=== PATIENT | female | born 1995 | race Hispanic/Latino ===

== ENCOUNTER 2019-01-18 06:33 | Outpatient (CLI) | payer OTHER ==
--- NOTE | 2019-01-18 08:55 | ULT ---
PELVIC SONOGRAM TRANSABDOMINAL IMAGING WITH DUPLEX EVALUATION: HISTORY: Pelvic pain and bleeding. FINDINGS: Urinary bladder is decompressed. Uterus is retroverted with a heterogeneous echotexture. It measure s up to 10.1 cm. Endometrium is 0.8 cm. A tiny nonshadowing echogenic focus is apparent within the fundal endometrium. Physiologic amount of free fluid in the cul-de-sac. Right ovary is 3.7 cm and left is 2.8 cm. Each contains small follicles and demonstrates good color and spectral Doppler flow. IMPRESSION: Retroverted uterus. Probable tiny calcific focus within the fundal endometrium. Cause is not eviden t. POS: [facility]
== END 2019-01-18 06:34 | disposition home or self-care (01) ==
LOC: BICULT 06:33
PROVIDERS: ATTEND Family Medicine
DX: N93.9 Abnormal uterine and vaginal bleeding, unspecified (principal); N85.4 Malposition of uterus
CPT/HCPCS: 76856; 93976

== ENCOUNTER 2020-01-24 13:56 | Outpatient (CLI) | payer MEDICAID ==
--- NOTE | 2020-01-24 14:40 | ULT ---
Exam: Transabdominal and endovaginal pelvic ultrasound HISTORY:Secondary infertility. COMPARISON: None TECHNIQUE: Transabdominal and endovaginal imaging of the pelvis is performed. Ovaries are interrogate d with grayscale, color flow, Doppler imaging and spectral wave form analysis FINDINGS: Uterus: No myometrial masses. Uterus measurin.7 x 3.8 x 4.7 cm. Endometrium: Homogeneous echotexture. Endometrium diameter: 1.5 cm. . Free fluid: None Right ovary: Normal echotexture Right ovary measurement: 3.9 x 2.3 x 2.1 cm Left ovary: Normal echotexture. Left ovary measurements: 3.0 x 2.7 x 2.1 cm Ovarian Doppler: There is vascular flow to the left and right ovary. IMPRESSION: 1. Normal sonographic appearance of the uterus and endometrium. 2. Symmetric echotexture of the ovaries. Symmetric vascular flow.
== END 2020-01-24 13:57 | disposition home or self-care (01) ==
LOC: BICULT 13:56
PROVIDERS: ATTEND Nurse Practitioner Women's Health
DX: N97.9 Female infertility, unspecified (principal)
CPT/HCPCS: 76856

== ENCOUNTER 2021-04-06 06:26 | Emergency (ER) | payer MEDICAID, SELFPAY ==
[2021-04-06 07:06] LABS: #Basophils 0.1 thou/uL (0.0-0.2); #Eosinphils 0.1 thou/uL (0.0-0.7); #Lymphocytes 2.8 thou/uL (1.20-3.40); #Monocytes 0.7 thou/uL (0.11-0.59); %Basophils 0.7 % (0.0-1.0); %Eosinophils 1.1 % (0.0-10.0); %Lymphocytes 26.4 % (21.0-51.0); %Monocytes 6.7 % (0.0-10.0); %Neutrophils 65.2 % (42.0-75.0); Hemoglobin 13.1 g/dL (12.0-16.0); Mean Corpuscular HGB CONC 33.1 g/dL (32.0-36.0); Mean Corpuscular Hemoglobin 30.7 pg (27.0-31.0); Mean Corpuscular Volume 92.7 fL (78.0-98.0); Mean Platelet Volume 7.7 fL (7.4-10.4); Platelet Count 319 thou/uL (130-400); Red Blood Cell (RBC) Count 4.25 mill/uL (4.20-5.40); White Blood Cell (WBC) Count 10.7 thou/uL (4.8-10.8)
[2021-04-06 07:29] LABS: ALT (SGPT) 11 U/L (8-55); AST (SGOT) 13 U/L (5-34); Albumin 4.3 g/dL (3.5-5.0); Alkaline Phosphatase 94 U/L (40-110); Anion Gap 11 mmol/L (10-20); BUN (Urea Nitrogen) 13 mg/dL (7.0-18.7); Bilirubin, Total 0.5 mg/dL (0.2-1.2); Calc. Creatinine Clearance 0 mL/min (70-130); Calcium 9.7 mg/dL (7.8-10.44); Carbon Dioxide 23 mmol/L (22-29); Chloride 106 mmol/L (98-107); Glucose 107 mg/dL (70-105); Lipase 30 U/L (8-78); Potassium 3.9 mmol/L (3.5-5.1); Protein, Total 7.3 g/dL (6.0-8.3); Sodium 136 mmol/L (136-145)
[2021-04-06] MEDS ORDERED: Ibuprofen 200 MG TAB ONE (07:31)
[2021-04-06] MEDS ORDERED: Acetaminophen 500 MG TAB ONE (07:31)
[2021-04-06 07:47] LABS: BHCG - Serum POSITIVE (NEGATIVE); Pregs Control Bar Appear? YES (CONTROL BAR)
[2021-04-06 07:48] LABS: Pregs Control Background? CLEAR/WHITE (CLR/WHITE)
[2021-04-06 10:39] LABS: Bilirubin Negative (Negative); Blood, Urine Negative (Negative); Clarity Turbid (Clear); Glucose, Urine (Dipstick) Normal (Negative); Ketone, Urine Negative (Negative); Leukocyte 250 Leu/uL (Negative); Nitrite Negative (Negative); Protein, Urine (Dipstick) Negative (Neg-Trace); RBC/HPF 0-3 HPF (0-3); Specific Gravity, Urine 1.016 (1.002-1.036); Urobilinogen Normal mg/dL (Less than 2); pH, Urine 6.5 (5.0-9.0)
[2021-04-06 10:40] LABS: Bacteria/HPF Rare-Few HPF (None Seen)
[2021-04-06 21:59] LABS: Chlamydia by PCR Not Detected (NotDetected); GC by PCR Not Detected (NotDetected)
== END 2021-04-06 11:32 | disposition home or self-care (01) ==
LOC: ERS 06:26
DX: O23.591 Infection of other part of genital tract in pregnancy, first trimester (principal); B96.89 Other specified bacterial agents as the cause of diseases classified elsewhere
CPT/HCPCS: 36415; 76856; 80053; 81003; 81015; 83690; 84702; 84703; 85025; 87480; 87491; 87510; 87591; 87660

== ENCOUNTER 2021-05-30 20:07 | Emergency (ER) | payer MEDICAID ==
[2021-05-30 20:46] LABS: Bilirubin Negative (Negative); Blood, Urine Negative (Negative); Clarity Clear (Clear); Glucose, Urine (Dipstick) Normal (Negative); Ketone, Urine Negative (Negative); Leukocyte Negative Leu/uL (Negative); Nitrite Negative (Negative); Protein, Urine (Dipstick) Negative (Neg-Trace); Urobilinogen Normal mg/dL (Less than 2)
[2021-05-30 20:47] LABS: Pregnancy Test - Urine (BHCG) POSITIVE (Negative); Pregu Control Background? CLEAR/WHITE (CLR/WHITE); Pregu Control Bar Appear? YES (CONTROL BAR)
[2021-05-30] MEDS ORDERED: Ondansetron ODT 4 MG TAB ONE (21:55)
[2021-05-30] MEDS ORDERED: Metoclopramide HCl 10 MG/2 ML VIAL ONE (22:33)
== END 2021-05-31 00:35 | disposition home or self-care (01) ==
LOC: ERS 20:07
DX: O9A.211 Injury, poisoning and certain other consequences of external causes complicating pregnancy, first trimester (principal); S09.90XA Unspecified injury of head, initial encounter; O44.01 Complete placenta previa NOS or without hemorrhage, first trimester; Z3A.12 12 weeks gestation of pregnancy; W22.01XA Walked into wall, initial encounter
CPT/HCPCS: 36415; 70450; 76856; 81003; 81025; 84702; 96374; J2765; Q0162